=== PATIENT | male | born 1980 | race Caucasian/White ===

== ENCOUNTER → 2016-08-14 | Outpatient (CLI) | payer BC, OTHER ==
[~2016-08-14] MED LIST: CELE100C; KETO-28; TIZA4TAB; TRAM100T; TRAMPOW3; VICO5TAB; VICODINES TAB
--- NOTE | 2016-08-16 08:22 | REP ---
MR THORACIC SPINE WITHOUT CONTRAST: HISTORY: Back pain. A small central disc protrusion is present at the T8-9 level. There is mild effacement of the thecal sac without spinal cord compression. The T8 neural foramina are patent. A small central disc protrusion is present at the T9-10 level. There is minimal effacement of the thecal sac without spinal cord compression. The T9 neural foramina are patent. There is no other disc bulge or herniation. The remaining neural foramina are patent. The spinal cord is normal in signal intensity. A hemangioma is present in the T3 vertebral body. Normal signal intensity is present in the remaining thoracic vertebral bodies. IMPRESSION: Small disc protrusions at the T8-9 and T9-10 levels without spinal cord compression. Signed by Ayan Burrows MD 08/16/2016 09:44 A
--- NOTE | 2016-08-16 08:32 | REP ---
MR LUMBAR SPINE WITHOUT CONTRAST: HISTORY: Back pain. COMPARISON: 07/02/2012 Decreased signal intensity on T2-weighted images is present in the L5-S1 intervertebral disc. The disc is decreased in height. These findings are consistent with disc degeneration. There is no disc bulge or herniation at the L1-2 through L3-4 levels. The nerves exit the neural foramina without compression. A diffuse disc bulge is present at the L4-5 level. There is minimal compression at the thecal sac. The L4 nerves exit the neural foramina without compression. A diffuse disc bulge and small disc extrusion central and eccentric to the right are present at the L5-S1 level. There is inferior migration of disc material. The disc extrusion abuts the thecal sac and right S1 nerve. The L5 nerves exit the neural foramina without compression. The conus medullaris is normal in appearance terminating at the level of the T12-L1 intervertebral disc. A hemangioma is present in the L3 vertebral body. Normal signal intensity is present in the remaining lumbar vertebral bodies. IMPRESSION: 1. Diffuse disc bulge at the L4-5 level with minimal thecal sac compression. 2. Diffuse disc bulge and small disc extrusion at the L5-S1 level. The disc extrusion abuts the thecal sac and right S1 nerve. There is no significant change compared to the previous study. Signed by Ayan Burrows MD 08/16/2016 09:44 A
== END ==
LOC: M RAD 16:15
PROVIDERS: ATTEND Neurological Surgery
DX: M54.5 Low back pain (principal)

== ENCOUNTER → 2019-01-03 | Outpatient (REF) | payer OTHER ==
[2019-01-06 11:51] LABS: HEPATITIS A ANTIBODY IGM NEGATIVE (NEGATIVE); HEPATITIS B CORE ANTIBODY IGM NEGATIVE (NEGATIVE); HEPATITIS B SURFACE ANTIGEN NEGATIVE (NEGATIVE); HEPATITIS C VIRUS ABY INDEX 0.1 INDEX (<0.8)
== END ==
LOC: M LAB REF 16:37
PROVIDERS: ATTEND Nurse Practitioner Adult Health
DX: R74.8 Abnormal levels of other serum enzymes (principal)

== ENCOUNTER → 2019-03-15 | Outpatient (REF) | payer OTHER | LOC: M LAB REF 15:28 | PROVIDERS: ATTEND Physician Assistant | DX: J02.9 Acute pharyngitis, unspecified (principal) ==

== ENCOUNTER 2019-08-30 16:59 | Emergency (ER) | payer BC, OTHER ==
[~2019-08-30] VITALS: Ht 177.8 cm; Wt 90.0 kg
[2019-08-30] MEDS ORDERED: BUPR1SUB33 (17:12)
[2019-08-30] MEDS ORDERED: ESCI20TA (17:12)
[2019-08-30] MEDS ORDERED: CYCLOBENZAPRINE 10MG TABLET PO ONE (18:30)
[2019-08-30] MEDS ORDERED: KETOROLAC 60MG 2ML VIAL IM ONE (18:30)
[2019-08-30] MEDS ORDERED: methylPREDNISolone 125MG 2ML VIAL IM ONE (18:30)
[2019-08-30] MEDS ORDERED: LIDOCAINE 5% (LIDODERM) PATCH TD ONE (18:30)
[2019-08-30] MEDS ORDERED: CYCL-707 PO (19:19)
[2019-08-30 19:37] VITALS: BP 123/73
[2019-08-30] MEDS ORDERED: **NOTE PATIENT COMMENT** MISC XX SCH (21:00)
== END 2019-08-30 19:37 | disposition home or self-care (01) ==
LOC: M ED 16:59
DX: M54.5 Low back pain (principal); G89.29 Other chronic pain; Z79.899 Other long term (current) drug therapy; Z79.891 Long term (current) use of opiate analgesic
CPT/HCPCS: 96372; 99283; J1885; J2930

== ENCOUNTER → 2020-08-24 | Outpatient (REF) | payer OTHER, BC ==
[~2020-08-24] MED LIST changes: +BUPR1SUB33; +CYCL-707 PO; +ESCI20TA16 PO
== END ==
LOC: M LAB REF 19:18
PROVIDERS: ATTEND Nurse Practitioner Family
DX: J02.9 Acute pharyngitis, unspecified (principal)

== ENCOUNTER 2021-01-16 11:54 | Emergency (ER) | payer BC, OTHER ==
[~2021-01-16] VITALS: Ht 177.8 cm; Wt 89.4 kg
[2021-01-16 11:54] VITALS: BP 153/83
[2021-01-16 12:15] VITALS: O2SAT 94
--- OUTSIDE RECORDS SUMMARY | 2021-01-16 12:44 | CCD ---
Author Author [facility] Organization [facility] Address Unknown Phone Unavailable Care Team Providers Care Circuit Court Magistrate Name Role Phone Virginie Linaresina LABORATORY ENGINEER Unavailable Unavailable Linares, Chana LABORATORY ENGINEER Unavailable Unavailable Linares, Chana LABORATORY ENGINEER Unavailable Unavailable Linares, Chana LABORATORY ENGINEER Unavailable Unavailable Linares, Chana LABORATORY ENGINEER Unavailable Unavailable Linares, Chana LABORATORY ENGINEER Unavailable Unavailable Linares, Chana LABORATORY ENGINEER Unavailable Unavailable Linares, Chana LABORATORY ENGINEER Unavailable Unavailable Linares, Chana LABORATORY ENGINEER Unavailable Unavailable Linares, Chana LABORATORY ENGINEER Unavailable Unavailable Linares, Chana LABORATORY ENGINEER Unavailable Unavailable Linares, Chana LABORATORY ENGINEER Unavailable Unavailable Linares, Chana LABORATORY ENGINEER Unavailable Unavailable ENIO A LYSSA PA Unavailable Unavailable Dianna STEEN PA Unavailable Unavailable Dianna STEEN PA Unavailable Unavailable Dianna STEEN PA Unavailable Unavailable Dianna STEEN PA Unavailable Unavailable Dianna STEEN PA Unavailable Unavailable LETTIERE, A LYSSA PA Unavailable Unavailable LETTIERE, A LYSSA PA Unavailable Unavailable LETTIERE, A LYSSA PA Unavailable Unavailable LETTIERE, A LYSSA PA Unavailable Unavailable LETTIERE, A LYSSA PA Unavailable Unavailable LETTIERE, A LYSSA PA Unavailable Unavailable LETTIERE, A LYSSA PA Unavailable Unavailable LETTIERE, A LYSSA PA Unavailable Unavailable LETTIERE, A LYSSA PA Unavailable Unavailable LETTIERE, A LYSSA PA Unavailable Unavailable LETTIERE, A LYSSA PA Unavailable Unavailable LETTIERE, A LYSSA PA Unavailable Unavailable LETTIERE, A LYSSA PA Unavailable Unavailable LETTIERE, A LYSSA PA Unavailable Unavailable LETTIERE, A LYSSA PA Unavailable Unavailable LETTIERE, A LYSSA PA Unavailable Unavailable LETTIERE, A LYSSA PA Unavailable Unavailable LETTIERE, A LYSSA PA Unavailable Unavailable LETTIERE, A LYSSA PA Unavailable Unavailable LETTIERE, A LYSSA PA Unavailable Unavailable LETTIERE, A LYSSA PA Unavailable Unavailable LETTIERE, A LYSSA PA Unavailable Unavailable LETTIERE, A LYSSA PA Unavailable Unavailable LETTIERE, A LYSSA PA Unavailable Unavailable LETTIERE, A LYSSA PA Unavailable Unavailable Hema, A Iain MD Unavailable Unavailable Hema, A Iain MD Unavailable Unavailable Hema, A Iain MD Unavailable Unavailable Hema, A Iain MD Unavailable Unavailable Hema, A Iain MD Unavailable Unavailable Hema, A Iain MD Unavailable Unavailable Hema, A Iain MD Unavailable Unavailable Hema, A Iain MD Unavailable Unavailable Hema, A Iain MD Unavailable Unavailable Hema, A Iain MD Unavailable Unavailable Hema, A Iain MD Unavailable Unavailable Hema, A Iain MD Unavailable Unavailable Hema, A Iain MD Unavailable Unavailable Hema, A Iain MD Unavailable Unavailable Hema, A Iain MD Unavailable Unavailable Hema, A Iain MD Unavailable Unavailable Hema, A Iain MD Unavailable Unavailable Hema, A Iain MD Unavailable Unavailable Hema, A Iain MD Unavailable Unavailable Hema, A Iain MD Unavailable Unavailable Hema, A Iain MD Unavailable Unavailable Hema, A Iain MD Unavailable Unavailable Hema, A Iain MD Unavailable Unavailable Hema, A Iain MD Unavailable Unavailable Hema, A Iain MD Unavailable Unavailable Hema, A Iain MD Unavailable Unavailable Hema, A Iain MD Unavailable Unavailable Hema, A Iain MD Unavailable Unavailable Hema, A Iain MD Unavailable Unavailable Hema, A Iain MD Unavailable Unavailable Hema, A Iain MD Unavailable Unavailable Hema, A Iain MD Unavailable Unavailable Hema, A Iain MD Unavailable Unavailable Hema, A Iain MD Unavailable Unavailable Hema, A Iain MD Unavailable Unavailable Hema, A Iain MD Unavailable Unavailable Hema, A Iain MD Unavailable Unavailable Hema, A Iain MD Unavailable Unavailable Hema, A Iain MD Unavailable Unavailable Hema, A Iain MD Unavailable Unavailable Hema, A Iain MD Unavailable Unavailable Hema, A Iain MD Unavailable Unavailable Hema, A Iain MD Unavailable Unavailable Hema, A Iain MD Unavailable Unavailable Hema, A Iain MD Unavailable Unavailable Hema, A Iain MD Unavailable Unavailable Hema, A Iain MD Unavailable Unavailable Hema, A Iain MD Unavailable Unavailable Hema, A Iain MD Unavailable Unavailable Hema, A Iain MD Unavailable Unavailable Hema, A Iain MD Unavailable Unavailable Hema, A Iain MD Unavailable Unavailable Hema, A Iain MD Unavailable Unavailable Hema, A Iain MD Unavailable Unavailable Hema, A Iain MD Unavailable Unavailable Hema, A Iain MD Unavailable Unavailable Hema, A Iain MD Unavailable Unavailable Hema, A Iain MD Unavailable Unavailable Hema, A Iain MD Unavailable Unavailable Hema, A Iain MD Unavailable Unavailable Hema, A Iain MD Unavailable Unavailable Hema, A Iain MD Unavailable Unavailable Hema, A Iain MD Unavailable Unavailable Hema, A Iain MD Unavailable Unavailable Hema, A Iain MD Unavailable Unavailable Hema, A Iain MD Unavailable Unavailable Hema, A Iain MD Unavailable Unavailable Hema, A Iain MD Unavailable Unavailable Hema, A Iain MD Unavailable Unavailable Hema, A Iain MD Unavailable Unavailable Hema, A Iain MD Unavailable Unavailable Hema, A Iain MD Unavailable Unavailable Hema, A Iain MD Unavailable Unavailable Hema, A Iain MD Unavailable Unavailable Hema, A Iain MD Unavailable Unavailable Hema, A Iain MD Unavailable Unavailable Hema, A Iain MD Unavailable Unavailable Hema, A Iain MD Unavailable Unavailable Hema, A Iain MD Unavailable Unavailable Hema, A Iain MD Unavailable Unavailable Hema, A Iain MD Unavailable Unavailable Hema, A Iain MD Unavailable Unavailable Hema, A Iain MD Unavailable Unavailable Hema, A Iain MD Unavailable Unavailable Hema, A Iain MD Unavailable Unavailable Hema, A Iain MD Unavailable Unavailable Hema, A Iain MD Unavailable Unavailable Hema, A Iain MD Unavailable Unavailable Hema, A Iain MD Unavailable Unavailable Hema, A Iain MD Unavailable Unavailable Hema, A Iain MD Unavailable Unavailable Hema, A Iain MD Unavailable Unavailable Hema, A Iain MD Unavailable Unavailable Hema, A Iain MD Unavailable Unavailable Hema, A Iain MD Unavailable Unavailable Hema, A Iain MD Unavailable Unavailable Hema, A Iain MD Unavailable Unavailable Hema, A Iain MD Unavailable Unavailable Hema, A Iain MD Unavailable Unavailable Hema, A Iain MD Unavailable Unavailable Hema, A Iain MD Unavailable Unavailable Hema, A Iain MD Unavailable Unavailable Hema, A Iain MD Unavailable Unavailable Hema, A Iain MD Unavailable Unavailable Hema, A Iain MD Unavailable Unavailable Hema, A Iain MD Unavailable Unavailable Hema, A Iain MD Unavailable Unavailable Hema, A Iain MD Unavailable Unavailable Hema, A Iain MD Unavailable Unavailable Hema, A Iain MD Unavailable Unavailable Hema, A Iain MD Unavailable Unavailable Hema, A Iain MD Unavailable Unavailable Hema, A Iain MD Unavailable Unavailable Hema, A Iain MD Unavailable Unavailable Hema, A Iain MD Unavailable Unavailable Hema, A Iain MD Unavailable Unavailable Hema, A Iain MD Unavailable Unavailable Hema, A Iain MD Unavailable Unavailable PICKERAL JR, J ARPIT PA-C Unavailable Unavailable PICKERAL JR, J ARPIT PA-C Unavailable Unavailable PICKERAL JR, J ARPIT PA-C Unavailable Unavailable PICKERAL JR, J ARPIT PA-C Unavailable Unavailable PICKERAL JR, J ARPIT PA-C Unavailable Unavailable PICKERAL JR, J ARPIT PA-C Unavailable Unavailable PICKERAL JR, J ARPIT PA-C Unavailable Unavailable PICKERAL JR, J ARPIT PA-C Unavailable Unavailable PICKERAL JR, J ARPIT PA-C Unavailable Unavailable PICKERAL JR, J ARPIT PA-C Unavailable Unavailable PICKERAL JR, J ARPIT PA-C Unavailable Unavailable PICKERAL JR, J ARPIT PA-C Unavailable Unavailable PICKERAL JR, J ARPIT PA-C Unavailable Unavailable PICKERAL JR, J ARPIT PA-C Unavailable Unavailable PICKERAL JR, J ARPIT PA-C Unavailable Unavailable PICKERAL JR, J ARPIT PA-C Unavailable Unavailable PICKERAL JR, J ARPIT PA-C Unavailable Unavailable PICKERAL JR, J ARPIT PA-C Unavailable Unavailable PICKERAL JR, J ARPIT PA-C Unavailable Unavailable PICKERAL JR, J ARPIT PA-C Unavailable Unavailable PICKERAL JR, J ARPIT PA-C Unavailable Unavailable PICKERAL JR, J ARPIT PA-C Unavailable Unavailable PICKERAL JR, J ARPIT PA-C Unavailable Unavailable PICKERAL JR, J ARPIT PA-C Unavailable Unavailable PICKERAL JR, J ARPIT PA-C Unavailable Unavailable PICKERAL JR, J ARPIT PA-C Unavailable Unavailable PICKERAL JR, J ARPIT PA-C Unavailable Unavailable AFRICA, Mary Beth CURIEL MD Unavailable Unavailable AFRICA, Mary Beth CURIEL MD Unavailable Unavailable AFRICA, Mary Beth CURIEL MD Unavailable Unavailable AFRICA, Mary Beth CURIEL MD Unavailable Unavailable AFRICA, Mary Beth CURIEL MD Unavailable Unavailable AFRICA, Mary Beth CURIEL MD Unavailable Unavailable AFRICA, Mary Beth CURIEL MD Unavailable Unavailable AFRICA, Mary Beth CURIEL MD Unavailable Unavailable AFRICA, Mary Beth CURIEL MD Unavailable Unavailable AFRICA, Mary Beth CURIEL MD Unavailable Unavailable AFRICA, Mary Beth CURIEL MD Unavailable Unavailable AFRICA, Mary Beth CURIEL MD Unavailable Unavailable AFRICA, Mary Beth CURIEL MD Unavailable Unavailable AFRICA, Mary Beth CURIEL MD Unavailable Unavailable AFRICA, Mary Beth CURIEL MD Unavailable Unavailable AFRICA, Mary Beth CURIEL MD Unavailable Unavailable AFRICA, Mary Beth CURIEL MD Unavailable Unavailable AFRICA, Mary Beth CURIEL MD Unavailable Unavailable AFRICA, Mary Beth CURIEL MD Unavailable Unavailable AFRICA, Mary Beth CURIEL MD Unavailable Unavailable AFRICA, Mary Beth CURIEL MD Unavailable Unavailable AFRICA, Mary Beth CURIEL MD Unavailable Unavailable AFRICA, Mary Beth CURIEL MD Unavailable Unavailable AFRICA, Mary Beth CURIEL MD Unavailable Unavailable AFRICA, Mary Beth CURIEL MD Unavailable Unavailable AFRICA, Mary Beth CURIEL MD Unavailable Unavailable AFRICA, Mary Beth CURIEL MD Unavailable Unavailable AFRICA, Mary Beth CURIEL MD Unavailable Unavailable AFRICA, Mary Beth CURIEL MD Unavailable Unavailable AFRICA, Mary Beth CURIEL MD Unavailable Unavailable AFRICA, Mary Beth CURIEL MD Unavailable Unavailable AFRICA, Mary Beth CURIEL MD Unavailable Unavailable AFRICA, Mary Beth CURIEL MD Unavailable Unavailable AFRICA, Mary Beth CURIEL MD Unavailable Unavailable AFRICA, Mary Beth CURIEL MD Unavailable Unavailable AFRICA, Mary Beth CURIEL MD Unavailable Unavailable AFRICA, Mary Beth CURIEL MD Unavailable Unavailable AFRICA, Mary Beth CURIEL MD Unavailable Unavailable AFRICA, Mary Beth CURIEL MD Unavailable Unavailable AFRICA, Mary Beth CURIEL MD Unavailable Unavailable AFRICA, Mary Beth CURIEL MD Unavailable Unavailable AFRICA, Mary Beth CURIEL MD Unavailable Unavailable AFRICA, Mary Beth CURIEL MD Unavailable Unavailable AFRICA, Mary Beth CURIEL MD Unavailable Unavailable AFRICA, Mary Beth CURIEL MD Unavailable Unavailable AFRICA, Mary Beth CURIEL MD Unavailable Unavailable AFRICA, Mary Beth CURIEL MD Unavailable Unavailable AFRICA, Mary Beth CURIEL MD Unavailable Unavailable AFRICA, Mary Beth CURIEL MD Unavailable Unavailable AFRICAMary Beth MD Unavailable Unavailable AFRICA, Mary Beth CURIEL MD Unavailable Unavailable AFRICA, Mary Beth CURIEL MD Unavailable Unavailable AFRICA, Mary Beth CURILE MD Unavailable Unavailable AFRICA, Mary Beth CURIEL MD Unavailable Unavailable AFRICA, Mary Beth CURIEL MD Unavailable Unavailable AFRICA, Mary Beth CURIEL MD Unavailable Unavailable AFRICA, Mary Beth CURIEL MD Unavailable Unavailable AFRICA, Mary Beth CURIEL MD Unavailable Unavailable AFRICA, Mary Beth CURIEL MD Unavailable Unavailable AFRICA, Mary Beth CURIEL MD Unavailable Unavailable AFRICA, Mary Beth CURIEL MD Unavailable Unavailable AFRICA, Mary Beth CURIEL MD Unavailable Unavailable AFRICA, Mary Beth CURIEL MD Unavailable Unavailable AFRICA, Mary Beth CURIEL MD Unavailable Unavailable AFRICA, Mary Beth CURIEL MD Unavailable Unavailable AFRICA, Mary Beth CURIEL MD Unavailable Unavailable AFRICA, Mary Beth CURIEL MD Unavailable Unavailable AFRICA, Mary Beth CURIEL MD Unavailable Unavailable AFRICA, Mary Beth CURIEL MD Unavailable Unavailable AFRICA, Mary Beth CURIEL MD Unavailable Unavailable AFRICA, Mary Beth CURIEL MD Unavailable Unavailable AFRICA, Mary Beth CURIEL MD Unavailable Unavailable AFRICA, Mary Beth CURIEL MD Unavailable Unavailable AFRICA, Mary Beth CURIEL MD Unavailable Unavailable AFRICA, Mary Beth CURIEL MD Unavailable Unavailable AFRICA, Mary Beth CURIEL MD Unavailable Unavailable AFRICA, Mary Beth CURIEL MD Unavailable Unavailable AFRICA, Mary Beth CURIEL MD Unavailable Unavailable AFRICA, Mary Beth CURIEL MD Unavailable Unavailable AFRICA, Mary Beth CURIEL MD Unavailable Unavailable AFRICA, Mary Beth CURIEL MD Unavailable Unavailable AFRICA, Mary Beth CURIEL MD Unavailable Unavailable AFRICA, Mary Beth CURIEL MD Unavailable Unavailable AFRICA, Mary Beth CURIEL MD Unavailable Unavailable AFRICA, Mary Beth CURIEL MD Unavailable Unavailable AFRICA, Mary Beth CURIEL MD Unavailable Unavailable AFRICA, Mary Beth CURIEL MD Unavailable Unavailable AFRICA, Mary Beth CURIEL MD Unavailable Unavailable AFRICA, Mary Beth CURIEL MD Unavailable Unavailable AFRICA, Mary Beth CURIEL MD Unavailable Unavailable AFRICA, Mary Beth CURIEL MD Unavailable Unavailable AFRICA, Mary Beth CURIEL MD Unavailable Unavailable AFRICA, Mary Beth CURIEL MD Unavailable Unavailable AFRICA, Mary Beth CURIEL MD Unavailable Unavailable AFRICA, Mary Beth CURIEL MD Unavailable Unavailable AFRICA, Mary Beth CURIEL MD Unavailable Unavailable AFRICA, Mary Beth CURIEL MD Unavailable Unavailable AFRICA, Mary Beth CURIEL MD Unavailable Unavailable AFRICA, Mary Beth CURIEL MD Unavailable Unavailable AFRICA, Mary Beth CURIEL MD Unavailable Unavailable AFRICA, Mary Beth CURIEL MD Unavailable Unavailable LIN, M PADMINI PA Unavailable Unavailable LIN, M PADMINI PA Unavailable Unavailable LIN, M PADMINI PA Unavailable Unavailable LIN, M PADMINI PA Unavailable Unavailable LIN, M PADMINI PA Unavailable Unavailable LIN, M PADMINI PA Unavailable Unavailable LIN, M PADMINI PA Unavailable Unavailable LIN, M PADMINI PA Unavailable Unavailable LIN, M PADMINI PA Unavailable Unavailable LIN, M PADMINI PA Unavailable Unavailable LIN, M PADMINI PA Unavailable Unavailable LIN, M PADMINI PA Unavailable Unavailable LIN, M PADMINI PA Unavailable Unavailable LIN, M PADMINI PA Unavailable Unavailable LIN, M PADMINI PA Unavailable Unavailable LIN, M PADMINI PA Unavailable Unavailable LIN, M PADMINI PA Unavailable Unavailable LIN, M PADMINI PA Unavailable Unavailable LIN, M PADMINI PA Unavailable Unavailable LIN, M PADMINI PA Unavailable Unavailable LIN, M PADMINI PA Unavailable Unavailable LIN, M PADMINI PA Unavailable Unavailable LIN, M PADMINI PA Unavailable Unavailable LIN, M PADMINI PA Unavailable Unavailable DEISY, J Ioana ANP Unavailable Unavailable DEISY, J Ioana ANP Unavailable Unavailable DEISY, J Ioana ANP Unavailable Unavailable DEISY, J Ioana ANP Unavailable Unavailable DEISY, J Ioana ANP Unavailable Unavailable DEISY, J Ioana ANP Unavailable Unavailable DEISY, J Ioana ANP Unavailable Unavailable DEISY, J Ioana ANP Unavailable Unavailable DEISY, J Ioana ANP Unavailable Unavailable DEISY, J Ioana ANP Unavailable Unavailable DEISY, J Ioana ANP Unavailable Unavailable DEISY, J Ioana ANP Unavailable Unavailable DEISY, J Ioana ANP Unavailable Unavailable DEISY, J Ioana ANP Unavailable Unavailable DEISY, J Ioana ANP Unavailable Unavailable DEISY, J Ioana ANP Unavailable Unavailable DEISY, J Ioana ANP Unavailable Unavailable DEISY, J Ioana ANP Unavailable Unavailable DEISY, J Ioana ANP Unavailable Unavailable DEISY, J Ioana ANP Unavailable Unavailable DEISY, J Ioana ANP Unavailable Unavailable DEISY, J Ioana ANP Unavailable Unavailable DEISY, J Ioana ANP Unavailable Unavailable DEISY, J Ioana ANP Unavailable Unavailable DEISY, J Ioana ANP Unavailable Unavailable DEISY, J Ioana ANP Unavailable Unavailable DEISY, J Ioana ANP Unavailable Unavailable DEISY, J Ioana ANP Unavailable Unavailable DEISY, J Ioana ANP Unavailable Unavailable DEISY, J Ioana ANP Unavailable Unavailable DEISY, J Ioana ANP Unavailable Unavailable DEISY, J Ioana ANP Unavailable Unavailable DEISY, J Ioana ANP Unavailable Unavailable DEISY, J Ioana ANP Unavailable Unavailable DEISY, J Ioana ANP Unavailable Unavailable DEISY, J Ioana ANP Unavailable Unavailable DEISY, J Ioana ANP Unavailable Unavailable DEISY, J Ioana ANP Unavailable Unavailable DEISY, J Ioana ANP Unavailable Unavailable DEISY, J Ioana ANP Unavailable Unavailable DEISY, J Ioana ANP Unavailable Unavailable DEISY, J Ioana ANP Unavailable Unavailable DEISY, J Ioana ANP Unavailable Unavailable DEISY, J Ioana ANP Unavailable Unavailable DEISY, J Ioana ANP Unavailable Unavailable DEISY, J Ioana ANP Unavailable Unavailable DEISY, J Ioana ANP Unavailable Unavailable DEISY, J Ioana ANP Unavailable Unavailable DEISY, J Ioana ANP Unavailable Unavailable DEISY, J Ioana ANP Unavailable Unavailable DEISY, J Ioana ANP Unavailable Unavailable DEISY, J Ioana ANP Unavailable Unavailable DEISY, J Ioana ANP Unavailable Unavailable DEISY, J Ioana ANP Unavailable Unavailable DEISY, J Ioana ANP Unavailable Unavailable DEISY, J Ioana ANP Unavailable Unavailable DEISY, J Ioana ANP Unavailable Unavailable DEISY, J Ioana ANP Unavailable Unavailable DEISY, J Ioana ANP Unavailable Unavailable DEISY, J Ioana ANP Unavailable Unavailable DEISY, J Ioana ANP Unavailable Unavailable DEISY, J Ioana ANP Unavailable Unavailable DEISY, J Ioana ANP Unavailable Unavailable DEISY, J Ioana ANP Unavailable Unavailable Re-disclosure Warning The records that you are about to access may contain information from federally-assisted alcohol or drug abuse programs. If such information is present, then the following federally mandated warning applies: This information has been disclosed to you from records protected by federal confidentiality rules (42 CFR part 2). The federal rules prohibit you from making any further disclosure of this information unless further disclosure is expressly permitted by the written consent of the person to whom it pertains or as otherwise permitted by 42 CFR part 2. A general authorization for the release of medical or other information is NOT sufficient for this purpose. The Federal rules restrict any use of the information to criminally investigate or prosecute any alcohol or drug abuse patient.The records that you are about to access may contain highly sensitive health information, the redisclosure of which is protected by Article 27-F of the [facility] Public Health law. If you continue you may have access to information: Regarding HIV / AIDS; Provided by facilities licensed or operated by the [facility] Office of Mental Health; or Provided by the [facility] Office for People With Developmental Disabilities. If such information is present, then the following [facility] mandated warning applies: This information has been disclosed to you from confidential records which are protected by state law. State law prohibits you from making any further disclosure of this information without the specific written consent of the person to whom it pertains, or as otherwise permitted by law. Any unauthorized further disclosure in violation of state law may result in a fine or mcc sentence or both. A general authorization for the release of medical or other information is NOT sufficient authorization for further disc losure. Allergies and Adverse Reactions Type Description Substance Reaction Status Data Source(s ) Propensity to adverse reactions NO KNOWN ALLERGIES NO KNOWN ALLERGIES [facility] Family History Family Member Name Family Member Gender Family Member Status Date o f Status Description Data Source(s) Unknown Unknown Problem [facility] ([facility]) father Unknown Unknown Problem [facility] ([facility] ) Encounters Encounter Providers Location Date Indications Data Source(s ) Outpatient Attender: Chana Lu wes 08/24/2020 02:40:00 PM EDT [facility] ([facility]) Outpatient Attender: ARPIT munguia 07/24/2020 11:30:00 AM EDT [facility] ([facility]) Outpatient Attender: LYSSA crum 06/25/2020 03:40:00 PM EDT [facility] ([facility]) Outpatient Attender: Chana Lu wes 02/15/2020 12:25:00 PM EST [facility] ([facility]) Outpatient Attender: VEENA Donerrer: Iain Rodriguez MD 02/12/2020 12:00:00 AM [facility] Outpatient Attender: VEENA LIZAMAeferrer: Iain Rodriguez MD 01/22/2020 12:00:00 AM [facility] Outpatient Attender: Ioana Yeung 08/2019 12:15:00 PM EST [facility] ([facility] ) Outpatient Attender: Iain Garrido MDReferrer: PADMINI PATEL [id number] 12/12/2019 12:00:00 AM EDT Other specified soft tissue disorders [facility] Other specified soft tissue disorders Medications Medication Brand Name Start Date Product Form Dose Route Admi nistrative Instructions Pharmacy Instructions Status Indications Reaction Description Data Source(s) 2-0.5 mg 12/28/2020 12:00:00 AM EST tablet, sublingual 140 DISSOLVE ONE TABLET UNDER THE TONGUE 5 TIMES DAILY MAXIMUM DAILY DOSE = 5 DISSOLVE ONE TABLET UNDER THE TONGUE 5 TIMES DAILY MAXIMUM DAILY DOSE = 5 SOLD: 12/28/2020 [facility] 2-0.5 mg 11/04/2020 12:00:00 AM EDT tablet, sublingual 140 USE 1 TABLET UNDER THE TONGUE 5 TIMES PER DAY MAXIMUM DAILY DOSE = 5 TABLETS USE 1 TABLET UNDER THE TONGUE 5 TIMES PER DAY MAXIMUM DAILY DOSE = 5 TABLETS SOLD: 12/01/2020 [facility] 2-0.5 mg 11/04/2020 12:00:00 AM EDT tablet, sublingual 140 USE 1 TABLET UNDER THE TONGUE 5 TIMES PER DAY MAXIMUM DAILY DOSE = 5 TABLETS USE 1 TABLET UNDER THE TONGUE 5 TIMES PER DAY MAXIMUM DAILY DOSE = 5 TABLETS SOLD: 11/04/2020 [facility] Escitalopram 20 MG Oral Tablet ESCITALOPRAM OXALATE 10/05/2020 1 2:00:00 AM EDT tablet 90 TAKE ONE TABLET BY MOUTH EVERY D AY TAKE ONE TABLET BY MOUTH EVERY DAY SOLD: 10/07/2020 [facility] 300 mg 09/21/2020 12:00:00 AM EDT capsule 20 TAKE ONE CAPSULE BY MOUTH EVERY 12 HOURS FOR 10 DAYS TAKE ONE CAPSULE BY MOUTH EVERY 12 HOURS FOR 10 DAYS S OLD: 09/21/2020 [facility] 2-0.5 mg 09/10/2020 12:00:00 AM EDT tablet, sublingual [address] PLACE ONE TABLET UNDER THE TONGUE FIVE TIMES A DAY MAXIMUM DAILY DOSE = 5 PLACE ONE TABLET UNDER THE TONGUE FIVE TIMES A DAY MAXIMUM DAILY DOSE = 5 SOLD: 09/11/2020 [facility] 2-0.5 mg 09/10/2020 12:00:00 AM EDT tablet, sublingual 140 PLACE ONE TABLET UNDER THE TONGUE FIVE TIMES A DAY MAXIMUM DAILY DOSE = 5 PLACE ONE TABLET UNDER THE TONGUE FIVE TIMES A DAY MAXIMUM DAILY DOSE = 5 SOLD: 10/08/2020 [facility] Cyclobenzaprine hydrochloride 10 MG Oral Tablet CYCLOBENZAPR INE HCL 08/24/2020 12:00:00 AM EDT tablet 30 TAKE ONE TABLET BY MOUTH EVERY DAY AT BEDTIME TAKE ONE TABLET BY MOUTH EVERY DAY AT BEDTIME SOLD: 09/21/2020 [facility] Cyclobenzaprine hydrochloride 10 MG Oral Tablet CYCLOBENZAPR INE HCL 08/24/2020 12:00:00 AM EDT tablet 30 TAKE ONE TABLET BY MOUTH EVERY DAY AT BEDTIME TAKE ONE TABLET BY MOUTH EVERY DAY AT BEDTIME SOLD: 08/24/2020 [facility] 2-0.5 mg 07/18/2020 12:00:00 AM EDT tablet, sublingual 140 PLACE ONE TABLET UNDER THE TONGUE FIVE TIMES A DAY MAXIMUM DAILY DOSE = [address] ONE TABLET UNDER THE TONGUE FIVE TIMES A DAY MAXIMUM DAILY DOSE = 5 TABLETS SOLD: 07/18/2020 [facility] 2-0.5 mg 07/18/2020 12:00:00 AM EDT tablet, sublingual [address] PLACE ONE TABLET UNDER THE TONGUE FIVE TIMES A DAY MAXIMUM DAILY DOSE = [address] ONE TABLET UNDER THE TONGUE FIVE TIMES A DAY MAXIMUM DAILY DOSE = 5 TABLETS SOLD: 08/14/2020 [facility] Escitalopram 20 MG Oral Tablet ESCITALOPRAM OXALATE 06/29/2020 1 2:00:00 AM EDT tablet 90 TAKE ONE TABLET BY MOUTH EVERY D AY TAKE ONE TABLET BY MOUTH EVERY DAY SOLD: 06/29/2020 [facility] Cyclobenzaprine hydrochloride 10 MG Oral Tablet CYCLOBENZAPR INE HCL 06/26/2020 12:00:00 AM EDT tablet 30 TAKE ONE TABLET BY MOUTH EVERY DAY AT BEDTIME TAKE ONE TABLET BY MOUTH EVERY DAY AT BEDTIME SOLD: 07/25/2020 [facility] Cyclobenzaprine hydrochloride 10 MG Oral Tablet CYCLOBENZAPR INE HCL 06/26/2020 12:00:00 AM EDT tablet 30 TAKE ONE TABLET BY MOUTH EVERY DAY AT BEDTIME TAKE ONE TABLET BY MOUTH EVERY DAY AT BEDTIME SOLD: 06/26/2020 [facility] Cyclobenzaprine hydrochloride 10 MG Oral Tablet Cyclobenzapr ine HCL 06/25/2020 12:00:00 AM EDT active M [facility]ENT ([facility], [facility]) 15 mg 06/09/2020 12:00:00 AM EDT tablet 30 TAKE ONE TABLET BY MOUTH DAILY WITH FOOD OR MILK TAKE ONE TABLET BY MOUTH DAILY WITH FOOD OR MILK SOLD: 08/14/2020 [facility] 15 mg 06/09/2020 12:00:00 AM EDT tablet 30 TAKE ONE TABLET BY MOUTH DAILY WITH FOOD OR MILK TAKE ONE TABLET BY MOUTH DAILY WITH FOOD OR MILK SOLD: 10/07/2020 [facility] 15 mg 06/09/2020 12:00:00 AM EDT tablet 30 TAKE ONE TABLET BY MOUTH DAILY WITH FOOD OR MILK TAKE ONE TABLET BY MOUTH DAILY WITH FOOD OR MILK SOLD: 06/09/2020 [facility] 15 mg 06/09/2020 12:00:00 AM EDT tablet 30 TAKE ONE TABLET BY MOUTH DAILY WITH FOOD OR MILK TAKE ONE TABLET BY MOUTH DAILY WITH FOOD OR MILK SOLD: 07/16/2020 [facility] 15 mg 06/09/2020 12:00:00 AM EDT tablet 30 TAKE ONE TABLET BY MOUTH DAILY WITH FOOD OR MILK TAKE ONE TABLET BY MOUTH DAILY WITH FOOD OR MILK SOLD: 11/16/2020 [facility] 2-0.5 mg 05/25/2020 12:00:00 AM EDT tablet, sublingual 140 TAKE 1 TABLET UNDER THE TONGUE 5 TIMES DAILY MAXIMUM DAILY DOSE = 5 TABLETS TAKE 1 TABLET UNDER THE TONGUE 5 TIMES DAILY MAXIMUM DAILY DOSE = 5 TABLETS SOLD: 05/25/2020 [facility] 2-0.5 mg 05/25/2020 12:00:00 AM EDT tablet, sublingual 140 TAKE 1 TABLET UNDER THE TONGUE 5 TIMES DAILY MAXIMUM DAILY DOSE = 5 TABLETS TAKE 1 TABLET UNDER THE TONGUE 5 TIMES DAILY MAXIMUM DAILY DOSE = 5 TABLETS SOLD: 06/21/2020 [facility] 2-0.5 mg 04/01/2020 12:00:00 AM EST tablet, sublingual 140 DISSOLVE 1 TABLET UNDER THE TONGUE 5 TIMES A DAY MAXIMUM DAILY DOSE = 5 DISSOLVE 1 TABLET UNDER THE TONGUE 5 TIMES A DAY MAXIMUM DAILY DOSE = 5 SOLD: 04/01/2020 [facility] 2-0.5 mg 04/01/2020 12:00:00 AM EST tablet, sublingual 140 DISSOLVE 1 TABLET UNDER THE TONGUE 5 TIMES A DAY MAXIMUM DAILY DOSE = 5 DISSOLVE 1 TABLET UNDER THE TONGUE 5 TIMES A DAY MAXIMUM DAILY DOSE = 5 SOLD: 04/28/2020 [facility] Escitalopram 20 MG Oral Tablet ESCITALOPRAM OXALATE 03/26/2020 1 2:00:00 AM EST tablet 90 TAKE ONE TABLET BY MOUTH EVERY D AY TAKE ONE TABLET BY MOUTH EVERY DAY SOLD: 03/30/2020 [facility] No Active Medications 02/15/2020 12:00:00 AM EST [facility] 2-0.5 mg 02/09/2020 12:00:00 AM EST tablet, sublingual 140 TAKE 1 TABLET UNDER THE TONGUE 5 TIMES A DAY MAXIMUM DAILY DOSE = 5 TAKE 1 TABLET UNDER THE TONGUE 5 TIMES A DAY MAXIMUM DAILY DOSE = 5 SOLD: 02/09/2020 [facility] 2-0.5 mg 02/09/2020 12:00:00 AM EST tablet, sublingual 140 TAKE 1 TABLET UNDER THE TONGUE 5 TIMES A DAY MAXIMUM DAILY DOSE = 5 TAKE 1 TABLET UNDER THE TONGUE 5 TIMES A DAY MAXIMUM DAILY DOSE = 5 SOLD: 03/06/2020 [facility] 600 mg 01/19/2020 12:00:00 AM EST tablet 90 TAKE ONE TABLET BY MOUTH THREE TIMES A DAY TAKE ONE TABLET BY MOUTH THREE TIMES A DAY SOLD: 05/08/2020 [facility] 600 mg 01/19/2020 12:00:00 AM EST tablet 90 TAKE ONE TABLET BY MOUTH THREE TIMES A DAY TAKE ONE TABLET BY MOUTH THREE TIMES A DAY SOLD: 04/07/2020 [facility] 600 mg 01/19/2020 12:00:00 AM EST tablet 90 TAKE ONE TABLET BY MOUTH THREE TIMES A DAY TAKE ONE TABLET BY MOUTH THREE TIMES A DAY SOLD: 02/26/2020 [facility] 600 mg 01/19/2020 12:00:00 AM EST tablet 90 TAKE ONE TABLET BY MOUTH THREE TIMES A DAY TAKE ONE TABLET BY MOUTH THREE TIMES A DAY SOLD: 01/22/2020 [facility] Escitalopram 20 MG Oral Tablet ESCITALOPRAM OXALATE 12/29/2019 1 2:00:00 AM EST tablet 90 TAKE ONE TABLET BY MOUTH EVERY D AY TAKE ONE TABLET BY MOUTH EVERY DAY SOLD: 12/31/2019 [facility] 2-0.5 mg 12/17/2019 12:00:00 AM EST tablet, sublingual 140 USE 1 TABLET UNDER THE TONGUE 5 TIMES PER DAY MAXIMUM DAILY DOSE = 5 USE 1 TABLET UNDER THE TONGUE 5 TIMES PER DAY MAXIMUM DAILY DOSE = 5 SOLD: 01/13/2020 [facility] 15 mg 12/06/2019 12:00:00 AM EDT tablet 30 TAKE ONE TABLET BY MOUTH DAILY WITH FOOD OR MILK TAKE ONE TABLET BY MOUTH DAILY WITH FOOD OR MILK SOLD: 03/11/2020 [facility] 15 mg 12/06/2019 12:00:00 AM EDT tablet 30 TAKE ONE TABLET BY MOUTH DAILY WITH FOOD OR MILK TAKE ONE TABLET BY MOUTH DAILY WITH FOOD OR MILK SOLD: 05/08/2020 [facility] 15 mg 12/06/2019 12:00:00 AM EDT tablet 30 TAKE ONE TABLET BY MOUTH DAILY WITH FOOD OR MILK TAKE ONE TABLET BY MOUTH DAILY WITH FOOD OR MILK SOLD: 02/09/2020 [facility] 15 mg 12/06/2019 12:00:00 AM EDT tablet 30 TAKE ONE TABLET BY MOUTH DAILY WITH FOOD OR MILK TAKE ONE TABLET BY MOUTH DAILY WITH FOOD OR MILK SOLD: 12/08/2019 [facility] 15 mg 12/06/2019 12:00:00 AM EDT tablet 30 TAKE ONE TABLET BY MOUTH DAILY WITH FOOD OR MILK TAKE ONE TABLET BY MOUTH DAILY WITH FOOD OR MILK SOLD: 01/07/2020 [facility] 15 mg 12/06/2019 12:00:00 AM EDT tablet 30 TAKE ONE TABLET BY MOUTH DAILY WITH FOOD OR MILK TAKE ONE TABLET BY MOUTH DAILY WITH FOOD OR MILK SOLD: 04/07/2020 [facility] meloxicam 15 MG Oral Tablet Meloxicam 15 MG Oral Table t (MOBIC) Meloxicam 15 MG Oral Tablet (MOBIC) 12/05/2019 12:00:00 AM EDT [facility] 600 mg 11/12/2019 12:00:00 AM EDT tablet 90 TAKE ONE TABLET BY MOUTH AT BEDTIME FOR 7 DAYS, THEN TWO TIMES A DAY FOR 7 DAYS, THEN TAKE ONE TABLET BY MOUTH THREE TIMES A DAY TAKE ONE TABLET BY MOUTH AT BEDTIME FOR 7 DAYS, THEN TWO TIMES A DAY FOR 7 DAYS, THEN TAKE ONE TABLET BY MOUTH THREE TIMES A DAY SOLD: 12/17/2019 [facility] 2-0.5 mg 10/25/2019 12:00:00 AM EDT tablet, sublingual 140 TAKE 1 TABLET UNDER THE TONGUE 5 TIMES A DAY MAXIMUM DAILY DOSE = 5 TAKE 1 TABLET UNDER THE TONGUE 5 TIMES A DAY MAXIMUM DAILY DOSE = 5 SOLD: 11/21/2019 [facility] Insurance Providers Payer name Policy type / Coverage type Policy ID Covered republican ID Covered republican's relationship to coronado Policy [place] Plan Information [facility] Insurance [facility] Workers Compensation [id number] Self [id number] [facility] Insurance [facility] Workers Compensation [id number] Self [id number] [facility] Insurance [facility] Workers Compensation [id number] Self [facility] [id number] SP [id number] [employer] MISHA DIV [id number] SP [id number] [employer] PLAN [facility] U [id number] Self [id number] [employer] [facility] U [id number] Self [id number] [facility] Health Maintenance Organization (HMO) [id number] Self [id number] [facility] [id number] SP [id number] [facility] EMPIRE MISHA DIV [id number] SP [id number] [facility] Commercial [id number] Self [place] Plan [facility] [id number] [facility] [id number] [facility] UNAVAILABLE UNAVAILABLE SELF PAY UNAVAILABLE SELF UNAVAILA BLE [facility] ([facility] P UNAVAILABLE S UNAVAILABLE [id number] [facility] ([facility]) P [id number] S [id number] [facility] Commercial [id number] Self [id number] [facility] Commercial [id number] Self [id number] [facility] [place] Commercial [id number] Self [id number] [facility] Commercial [id number] Self [id number] [facility] [place] Health Maintenance Organization (HMO) [id number] Self [id number] Problems, Conditions, and Diagnoses Code Display Name Description Problem Type Effective Dates Data Source(s) G89.29 Other chronic pain Other chronic pain Diagnosis 10:39:38 AM EDT [facility] M54.5 Low back pain Low back pain Diagnosis 12/12/2019 10:39:38 AM EDT [facility] M79.89 Other specified soft tissue disorders Ot her specified soft tissue disorders Diagnosis 12/12/2019 10:39:38 AM EDT [facility] Surgeries/Procedures Procedure Description Date Indications Data Source(s) OFFICE OUTPATIENT VISIT 15 MINUTES 08/24/2020 12:00:00 AM EDT [facility] ([facility], [facility]) OFFICE OUTPATIENT VISIT 15 MINUTES 07/24/2020 12:00:00 AM EDT [facility] ([facility], [facility]) OFFICE OUTPATIENT VISIT 25 MINUTES 06/25/2020 12:00:00 AM EDT [facility] ([facility], [facility]) Results ID Date Data Source [id number] 01/10/2021 04:00:00 PM EST [facility] Name Value Range Interpretation Code Description Data Kelsie rce(s) Supporting Document(s) SARS coronavirus 2 RNA [Presence] in Res piratory specimen by NEETU with probe detection Positive [facility] This lab was ordered by [employer] and re ported by [employer]. ID Date Data Source [id number] 01/12/2021 02:38:00 AM EST [facility] Name Value Range Interpretation Code Description Data Kelsie rce(s) Supporting Document(s) 16429-8 DETECTED Abnormal (applies to non-numeric res ults) [facility] A Detected result is considered a positi ve test resultfor COVID-19. This indicates that RNA from SARS-CoV-2(formerly 2019-nCoV) was detected, and the patient isinfected with the virus and presumed to be contagious.If requested by public health authority, specimen willbe sent for additional testing.Specimens that are self-collected were not tested withan internal control to confirm that the specimen wasproperly collected. As such, unobserved self-collectedspecimens from SARS-CoV-2 positive individuals may yieldnegative results if the specimen was not collected properly.Please review the "Fact Sheets" and FDA authorizedlabeling available for health care providers andpatients using the following websites:userfox.com/home/Covid-19/HCP/cb-jfxs-bamu-lqwzz7LxgwfYgujcqsu ics.com/home/Covid-19/Patients/vv-zhgs-fkrn-lczah7Rjkn test has been authorized by the FDA under anEmergency Use Authorization (EUA) for use by authorizedlaboratories.Methodology: Nucleic Acid Amplification Test (NEETU T)includes RT-PCR or TMA ID Date Data Source [id number] 01/10/2021 08:00:00 AM EST [facility] Name Value Range Interpretation Code Description Data Kelsie rce(s) Supporting Document(s) SARS-COV-2 RNA RESP QL NEETU+PROBE Detected [facility] This lab was ordered by [facility] and reported by [employer]. ID Date Data Source [id number] 12/31/2020 07:00:00 PM EST [facility] Name Value Range Interpretation Code Description Data Kelsie rce(s) Supporting Document(s) SARS coronavirus 2 RNA [Presence] in Res piratory specimen by NEETU with probe detection Not detected [facility] This lab was ordered by [facility] and re ported by [facility]. ID Date Data Source [id number] 01/05/2021 01:55:00 AM EST [facility] Name Value Range Interpretation Code Description Data Kelsie rce(s) Supporting Document(s) 51730-5 NOT DETECTED [facility] A Not Detected (negative) test result fo r this testmeans that SARS- CoV-2 RNA was not present in the specimenabove the limit of detection. A negative result does notrule out the possibility of COVID-19 and should not beused as the sole basis for treatment or patient managementdecisions. If COVID-19 is still suspected, based onexposure history together with other clinical findings,re- testing should be considered in consultation with[facility] authorities. Laboratory test results shouldalways be considered in the context of clinicalobservations and epidemiological data in making a finaldiagnosis and patient management decisions.Specimens that are self-collected were not tested withan internal control to confirm that the specimen wasproperly collected. As such, unobserved self-collectedspecimens from SARS-CoV-2 positive individuals may yieldnegative results if the specimen was not collected properly.Please review the "Fact Sheets" and FDA authorizedlabeling available for health care pr oviders andpatients using the following websites:[facility]fox[facility]/home/Covid-19/HCP/mk-fcxb-ecfh-nxayi7XqoytCluqbxll ics.com/home/Covid-19/Patients/bb-yfiu-clsw-wfvsx8Says test has been authorized by the FDA under anEmergency Use Authorization (EUA) for use by authorizedlaboratories.Methodology: Nucleic Acid Amplification Test (NAAT)includes RT-PCR or TMA ID Date Data Source [id number] 12/31/2020 11:00:00 AM EST [facility] Name Value Range Interpretation Code Description Data Kelsie rce(s) Supporting Document(s) SARS-COV-2 RNA RESP QL NEETU+PROBE Not detected [facility] This lab was ordered by [facility] and reported by [employer]. ID Date Data Source [id number] 12/24/2020 10:08:00 PM EST [facility] Name Value Range Interpretation Code Description Data Kelsie rce(s) Supporting Document(s) SARS coronavirus 2 RNA [Presence] in Res piratory specimen by NEETU with probe detection Not detected [facility] This lab was ordered by [facility] and re ported by [facility]. ID Date Data Source [id number] 12/24/2020 02:08:00 PM EST [facility] Name Value Range Interpretation Code Description Data Kelsie rce(s) Supporting Document(s) SARS-COV-2 RNA RESP QL NEETU+PROBE Not detected [facility] This lab was ordered by [facility] and reported by [employer]. ID Date Data Source [id number] 12/26/2020 03:59:00 AM EST [facility] Name Value Range Interpretation Code Description Data Kelsie rce(s) Supporting Document(s) 82091-8 NOT DETECTED [facility] A Not Detected (negative) test result fo r this testmeans that SARS- CoV-2 RNA was not present in the specimenabove the limit of detection. A negative result does notrule out the possibility of COVID-19 and should not beused as the sole basis for treatment or patient managementdecisions. If COVID-19 is still suspected, based onexposure history together with other clinical findings,re- testing should be considered in consultation withpublic health authorities. Laboratory test results shouldalways be considered in the context of clinicalobservations and epidemiological data in making a finaldiagnosis and patient management decisions.Specimens that are self-collected were not tested withan internal control to confirm that the specimen wasproperly collected. As such, unobserved self-collectedspecimens from SARS-CoV-2 positive individuals may yieldnegative results if the specimen was not collected properly.Please review the "Fact Sheets" and FDA authorizedlabeling available for health care pr oviders andpatients using the following websites:[employer]/home/Covid-19/HCP/cl-kdmd-iyjs-mwfoo3HkgidDvgtqbjq [employer]/home/Covid-19/Patients/ys-xmpk-hwzw-cbmzs4Vhyj test has been authorized by the FDA under anEmergency Use Authorization (EUA) for use by authorizedlaboratories.Methodology: Nucleic Acid Amplification Test (NAAT)includes RT-PCR or TMA ID Date Data Source [id number] 12/17/2020 09:00:00 PM EDT [facility] Name Value Range Interpretation Code Description Data Kelsie rce(s) Supporting Document(s) SARS coronavirus 2 RNA [Presence] in Res piratory specimen by NEETU with probe detection Not detected [facility] This lab was ordered by [facility] and re ported by [facility]. ID Date Data Source [id number] 12/17/2020 02:00:00 PM EDT [facility] Name Value Range Interpretation Code Description Data Kelsie rce(s) Supporting Document(s) SARS-COV-2 RNA RESP QL NEETU+PROBE Not detected [facility] This lab was ordered by [facility] Employee Cov id and reported by [employer]. ID Date Data Source [id number] 12/19/2020 06:44:00 PM EST [facility] Name Value Range Interpretation Code Description Data Kelsie rce(s) Supporting Document(s) 44434-5 NOT DETECTED [facility] A Not Detected (negative) test result fo r this testmeans that SARS- CoV-2 RNA was not present in the specimenabove the limit of detection. A negative result does notrule out the possibility of COVID-19 and should not beused as the sole basis for treatment or patient managementdecisions. If COVID-19 is still suspected, based onexposure history together with other clinical findings,re- testing should be considered in consultation with[facility] authorities. Laboratory test results shouldalways be considered in the context of clinicalobservations and epidemiological data in making a finaldiagnosis and patient management decisions.Specimens that are self-collected were not tested withan internal control to confirm that the specimen wasproperly collected. As such, unobserved self-collectedspecimens from SARS-CoV-2 positive individuals may yieldnegative results if the specimen was not collected properly.Please review the "Fact Sheets" and FDA authorizedlabeling available for health care pr oviders andpatients using the following websites:userfox[facility]/home/Covid-19/HCP/lw-slnf-ilvb-sqfdx7SngncMfllqqpsiota Computing/home/Covid-19/Patients/pk-pcyp-edbb-awrdt6Uijo test has been authorized by the FDA under anEmergency Use Authorization (EUA) for use by authorizedlaboratories.Methodology: Nucleic Acid Amplification Test (NAAT)includes RT-PCR or TMA ID Date Data Source [id number] 12/12/2020 12:33:00 AM EDT [facility] Name Value Range Interpretation Code Description Data Kelsie rce(s) Supporting Document(s) 83942-3 NOT DETECTED [facility] A Not Detected (negative) test result fo r this testmeans that SARS- CoV-2 RNA was not present in the specimenabove the limit of detection. A negative result does notrule out the possibility of COVID-19 and should not beused as the sole basis for treatment or patient managementdecisions. If COVID-19 is still suspected, based onexposure history together with other clinical findings,re- testing should be considered in consultation with[facility] authorities. Laboratory test results shouldalways be considered in the context of clinicalobservations and epidemiological data in making a finaldiagnosis and patient management decisions.Specimens that are self-collected were not tested withan internal control to confirm that the specimen wasproperly collected. As such, unobserved self-collectedspecimens from SARS-CoV-2 positive individuals may yieldnegative results if the specimen was not collected properly.Please review the "Fact Sheets" and FDA authorizedlabeling available for health care pr oviders andpatients using the following websites:[employer].com/home/Covid-19/HCP/gf-rafp-jzci-afwpn6JmflcNcjknquk [employer]com/home/Covid-19/Patients/dm-oche-ehnt-zvalu0Meml test has been authorized by the FDA under anEmergency Use Authorization (EUA) for use by authorizedlaboratories.Methodology: Nucleic Acid Amplification Test (NAAT)includes RT-PCR or TMA ID Date Data Source [id number] 12/10/2020 11:30:00 AM EDT [facility] Name Value Range Interpretation Code Description Data Kelsie rce(s) Supporting Document(s) SARS-COV-2 RNA RESP QL NEETU+PROBE Not detected [facility] This lab was ordered by [facility] Employee Cov id and reported by [employer]. ID Date Data Source [id number] 12/03/2020 08:00:00 PM EDT [facility] Name Value Range Interpretation Code Description Data Kelsie rce(s) Supporting Document(s) SARS coronavirus 2 RNA [Presence] in Res piratory specimen by NEETU with probe detection Not detected [facility] This lab [facility] by [facility] and re ported by [facility]. ID Date Data Source [id number] 12/03/2020 01:00:00 PM EDT [facility] Name Value Range Interpretation Code Description Data Kelsie rce(s) Supporting Document(s) SARS-COV-2 RNA RESP QL NEETU+PROBE Not detected [facility] This lab was ordered by [facility] Employee Cov id and reported by [facility]. ID Date Data Source [id number] 12/05/2020 06:14:00 AM EDT [facility] Name Value Range Interpretation Code Description Data Kelsie rce(s) Supporting Document(s) 53355-0 NOT DETECTED [facility] A Not Detected (negative) test result fo r this testmeans that SARS- CoV-2 RNA was not present in the specimenabove the limit of detection. A negative result does notrule out the possibility of COVID-19 and should not beused as the sole basis for treatment or patient managementdecisions. If COVID-19 is still suspected, based onexposure history together with other clinical findings,re- testing should be considered in consultation withpublic health authorities. Laboratory test results shouldalways be considered in the context of clinicalobservations and epidemiological data in making a finaldiagnosis and patient management decisions.Specimens that are self-collected were not tested withan internal control to confirm that the specimen wasproperly collected. As such, unobserved self-collectedspecimens from SARS-CoV-2 positive individuals may yieldnegative results if the specimen was not collected properly.Please review the "Fact Sheets" and FDA authorizedlabeling available for health care pr oviders andpatients using the following websites:[facility]fox.[facility]/home/Covid-19/HCP/ca-ches-uuhv-wzclm2VnewiCzqhxydp [employer]com/home/Covid-19/Patients/cj-uxjp-hymn-uxyqg6Xkzx test has been authorized by the FDA under anEmergency Use Authorization (EUA) for use by authorizedlaboratories.Methodology: Nucleic Acid Amplification Test (NAAT)includes RT-PCR or TMA ID Date Data Source [id number] 11/29/2020 09:13:00 PM EDT [facility] Name Value Range Interpretation Code Description Data Kelsie rce(s) Supporting Document(s) SARS coronavirus 2 RNA [Presence] in Res piratory specimen by NEETU with probe detection Not detected [facility] This lab was [facility] by [facility] and re ported by [facility]. ID Date Data Source [id number] 11/30/2020 06:37:00 AM EDT [facility] Name Value Range Interpretation Code Description Data Kelsie rce(s) Supporting Document(s) 96431-8 NOT DETECTED [facility] A Not Detected (negative) test result fo r this testmeans that SARS- CoV-2 RNA was not present in the specimenabove the limit of detection. A negative result does notrule out the possibility of COVID-19 and should not beused as the sole basis for treatment or patient managementdecisions. If COVID-19 is still suspected, based onexposure history together with other clinical findings,re- testing should be considered in consultation with[facility]. Laboratory test results shouldalways be considered in the context of clinicalobservations and epidemiological data in making a finaldiagnosis and patient management decisions.Specimens that are self-collected were not tested withan internal control to confirm that the specimen wasproperly collected. As such, unobserved self-collectedspecimens from SARS-CoV-2 positive individuals may yieldnegative results if the specimen was not collected properly.Please review the "Fact Sheets" and FDA authorizedlabeling available for health care pr oviders andpatients using the following websites:[facility]fox.[facility]/home/Covid-19/HCP/kd-ephd-oikj-jemdo1IuzcmKjelnwie [employer]com/home/Covid-19/Patients/bs-zirf-lcpe-vqifd9Qewz test has been authorized by the FDA under anEmergency Use Authorization (EUA) for use by authorizedlaboratories.Methodology: Nucleic Acid Amplification Test (NAAT)includes RT-PCR or TMA ID Date Data Source [id number] 11/29/2020 02:13:00 PM EDT [facility] Name Value Range Interpretation Code Description Data Kelsie rce(s) Supporting Document(s) SARS-COV-2 RNA RESP QL NEETU+PROBE Not detected [facility] This lab was ordered by [facility] Employee Cov id and reported by [facility]. ID Date Data Source [id number] 09/21/2020 12:00:00 AM EDT [facility] Name Value Range Interpretation Code Description Data Kelsie rce(s) Supporting Document(s) SARS-CoV2 Rapid Antigen Negative [facility] This lab was ordered by [facility] and reported by [facility]. ID Date Data Source [id number] 08/24/2020 03:21:00 PM EDT [facility] ([facility]) Name Value Range Interpretation Code Description Data Kelsie rce(s) Supporting Document(s) Group A Strep Culture Laboratory [facility] ([facility], [facility]) FULL REPORT IN LAB NOTES ([facility] and [facility]). NEGATIVE FOR STREP PYOGENES (GROUP A) ID Date Data Source [id number] 08/24/2020 12:00:00 AM EDT [facility] Name Value Range Interpretation Code Description Data Kelsie rce(s) Supporting Document(s) SARS-CoV2 Rapid Antigen Negative [facility] This lab was reported by [facility]. ID Date Data Source [id number] 02/15/2020 12:00:00 AM EST [facility] Name Value Range Interpretation Code Description Data Kelsie rce(s) Supporting Document(s) SARS coronavirus 2 Ag [facility] This lab was ordered by [facility] and reported by [facility]. ID Date Data Source [id number] 02/24/2020 12:00:00 AM EST [facility] Name Value Range Interpretation Code Description Data Kelsie rce(s) Supporting Document(s) SARS-CoV-2 (COVID-19) RNA [Presence] in Respiratory specimen by [facility] with probe detection Not Detected [facility] This lab was ordered by [facility] and reported by [employer]. ID Date Data Source [id number] 12/12/2019 11:19:27 AM [facility] Name Value Range Interpretation Code Description Data Kelsie rce(s) Supporting Document(s) Progress Note [facility] [id number] m [file] [id number]/infrastructure director+c [file] [id number] Procedure Social History Code Duration Value Status Description Data Source(s ) Smoking 02/15/2020 12:00:00 AM EST Patient is a former smoker completed Patient is a former smoker [facility] Alcohol intake 12/12/2019 12:00:00 AM EDT Ex-drinker (finding) comp leted Ex- drinker (finding) [facility] Tobacco use and exposure 12/12/2019 12:00:00 AM EDT Current user co mpleted Current user [facility] Smoking 12/12/2019 12:00:00 AM EDT Never smoker completed Never s [facility] Vital Signs ID Date Data Source UNK Name Value Range Interpretation Code Description Data Source(s) Systolic blood pressure 133 mm[Hg] 133 mm[Hg] [facility] Diastolic blood pressure 83 mm[Hg] 83 mm[Hg] [facility] Heart rate 109 /min 109 /min [facility]) Respiratory rate 15 /min 15 /min [facility] ( [facility]) Oxygen saturation in Arterial blood by Pulse oximetry 97 % 97 % [facility] ([facility]) Body temperature 98.0 [degF] 98.0 [degF] [facility] ([facility]) Body weight 195.00 [lb_av] 195.00 [lb_av] [facility] ([facility]) Body height 70 [in_i] 70 [in_i] [facility] ([facility]) 5'10" Body mass index (BMI) [Ratio] 28.0 kg/m2 28.0 k g/m2 [facility] ([facility]) Systolic blood pressure 132 mm[Hg] 132 mm[Hg] [facility] Diastolic blood pressure 91 mm[Hg] 91 mm[Hg] [facility] Heart rate 103 /min 103 /min [facility] ([facility]) Respiratory rate 12 /min 12 /min [facility] ( [facility], [facility]) Oxygen saturation in Arterial blood by Pulse oximetry 99 % 99 % [facility] ([facility], [facility]) Body temperature 98.2 [degF] 98.2 [degF] [facility] ([facility], [facility]) Body weight 195.00 [lb_av] 195.00 [lb_av] [facility] ([facility], [facility]) Body height 70 [in_i] 70 [in_i] [facility]) 5'10" Body mass index (BMI) [Ratio] 28.0 kg/m2 28.0 k g/m2 [facility] ([facility], [facility]) Body temperature 99.3 [degF] 99.3 [degF] [facility] ([facility], [facility]) Body height 70 [in_i] 70 [in_i] [facility] ([facility], [facility]) 5'10" Body mass index (BMI) [Ratio] 27.4 kg/m2 27.4 k g/m2 [facility] ([facility], [facility]) Oxygen saturation in Arterial blood by Pulse oximetry 97 % 97 % [facility] ([facility], [facility]) Systolic blood pressure 127 mm[Hg] 127 mm[Hg] [facility]) Diastolic blood pressure 83 mm[Hg] 83 mm[Hg] [facility] ([facility], [facility]) Heart rate 89 /min 89 /min [facility] ([facility], [facility]) Respiratory rate 16 /min 16 /min [facility] ( [facility], [facility]) Body weight 191.00 [lb_av] 191.00 [lb_av] [facility] ([facility], [facility]) Systolic blood pressure 117 mm[Hg] 117 mm[Hg] [facility]) Body temperature 97.9 [degF] 97.9 [degF] [facility] ([facility]) Diastolic blood pressure 74 mm[Hg] 74 mm[Hg] [facility] ([facility], [facility]) Body weight 200.00 [lb_av] 200.00 [lb_av] [facility] ([facility], [facility]) Body height 70 [in_i] 70 [in_i] [facility] ([facility]) 5'10" Body mass index (BMI) [Ratio] 28.7 kg/m2 28.7 k g/m2 [facility] ([facility]) Heart rate 70 /min 70 /min [facility] ([facility], [facility]) Respiratory rate 15 /min 15 /min [facility] ( [facility]) Oxygen saturation in Arterial blood by Pulse oximetry 99 % 99 % [facility] ([facility]) Systolic blood pressure 130 mm[Hg] 130 mm[Hg] [facility] ([facility]) Diastolic blood pressure 78 mm[Hg] 78 mm[Hg] [facility] ([facility]) Heart rate 103 /min 103 /min [facility] ([facility]) Body height 69.25 [in_i] 69.25 [in_i] [facility] ([facility]) 5'9.25" Body weight 214.00 [lb_av] 214.00 [lb_av] [facility] ([facility]) Oxygen saturation in Arterial blood by Pulse oximetry 100 % 100 % [facility] ([facility]) Body mass index (BMI) [Ratio] 31.4 kg/m2 31.4 k g/m2 [facility] ([facility]) ID Date Data Source [id number] 12/12/2019 11:19:34 AM [facility] Name Value Range Interpretation Code Description Data Source(s) WEIGHT RECORDED 205 lb 205 lb [facility] Body height Measured 70 in 70 in [facility] Patient Treatment Plan of Care Planned Activity Planned Date Details Description Data Source (s) meloxicam 15 MG Oral Tablet 12/05/2019 12:00:00 AM [facility]
--- OUTSIDE RECORDS SUMMARY | 2021-01-16 12:44 | CCD | Continuity of Care Document ---
Author Author Isidoro CEBALLOS PA Organization Unknown Address [address] [place] [id number] Phone [phone] Care Team Providers Care Agricultural Sales Representative Name Role Phone Marito Delarosa MD Unavailable Problems Active Problems Provider Date Low back pain Onset: Social History Type Date Description Comments Sex Unknown Tobacco Use Start: Unknown End: Unknown Patient is a former smoker Smoking Status Reviewed: 09/02/19 Patient is a former smoker Allergies and adverse reactions Description No Known Drug Allergies Medications Active Medications SIG Qnty Indications Ordering Provide r Date Gabapentin 600mg Tablets 1 by mouth three times a day 90tabs M47.817 Steve Bartholomew MD 11/12/2019 Meloxicam 15mg Tablets Take One Tablet By Mouth Daily With Food Or Milk 30tabs M47.817 Jovan López 10/07/2019 Cyclobenzaprine HCL 10mg Tablets Three Times A Day for Muscle Spasms 15tabs Unknown Buprenorphine HCL-Naloxone HCL 2-0.5mg Tablets Sub Unknown Escitalopram Oxalate 20mg Tablets Unknown Immunizations Description No Information Available Vital Signs Date Vital Result Comment 09/02/2019 3:17pm Body Temperature 96.8 F Height 70 inches 5'10" Weight 195.00 lb BMI (Body Mass Index) 28.0 kg/m2 08/30/2019 5:00pm Weight 198.44 lb BMI (Body Mass Index) 28.0 kg/m2 Results Description No Information Available Procedures Description No Information Available Medical Devices Description No Information Available Encounters Description No Information Available Assessments Description No Information Available Plan of Treatment 11/12/2019 - JORGE Le* M47.817 Spondylosis without myelopathy or radiculopathy, lumbosacral region* New Medication:* Gabapentin 600 mg - 1 by mouth three times a day * Follow up:* in 4 weeks with [facility] for back recheck * M51.37 Other intervertebral disc degeneration, lumbosacral region * M51.27 Other intervertebral disc displacement, lumbosacral region * M48.061 Spinal stenosis, lumbar region without neurogenic claudication * 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
--- NOTE | 2021-01-16 14:14 | REP ---
INDICATION: covid post, cough, chest tightness. COMPARISON: PA chest, 05/21/2015. TECHNIQUE: Upright PA and lateral chest images were obtained. FINDINGS: The lungs are clear. The heart borders, mediastinum and pulmonary vascular pattern normal. The upper abdominal bowel gas pattern is normal. There are no bony abnormalities of the chest. IMPRESSION: No evidence of acute cardiopulmonary pathology. <Electronically signed by Iain Rahman > 01/16/21 [id number]
== END 2021-01-16 14:31 | disposition home or self-care (01) ==
LOC: M ED 11:54
DX: R05.9 Cough, unspecified (principal); U07.1 COVID-19; Z79.899 Other long term (current) drug therapy

== ENCOUNTER → 2022-03-03 | Outpatient (CLI) | payer BC, OTHER | LOC: M RAD 17:56 | PROVIDERS: ATTEND Physician Assistant | DX: R07.82 Intercostal pain (principal) ==

== ENCOUNTER → 2022-04-21 | Outpatient (CLI) | payer BC, OTHER | LOC: M PLARAD 14:46 | PROVIDERS: ATTEND Physical Medicine & Rehabilitation | DX: M51.36 Other intervertebral disc degeneration, lumbar region (principal) ==

== ENCOUNTER → 2022-07-31 | Outpatient (CLI) | payer BC, OTHER ==
[2022-07-31 17:16] LABS: PLATELET COUNT, AUTOMATED 249 10^3/uL (150-450)
[2022-07-31 17:28] LABS: INR 0.94; PROTHROMBIN TIME 12.8 SECONDS (12.5-14.5)
[2022-07-31 17:29] LABS: PARTIAL THROMBOPLASTIN TIME 30.8 SECONDS (24.8-34.2)
== END ==
LOC: M LAB 15:38
PROVIDERS: ATTEND Physician Assistant
DX: Z01.818 Encounter for other preprocedural examination (principal)

== ENCOUNTER → 2022-12-22 | Outpatient (CLI) | payer BC, OTHER | LOC: M PLARAD 07:40 | PROVIDERS: ATTEND Physician Assistant | DX: M51.26 Other intervertebral disc displacement, lumbar region (principal) ==

== ENCOUNTER → 2023-03-16 | Outpatient (CLI) | payer BC, OTHER ==
[2023-03-16 12:45] LABS: PLATELET COUNT, AUTOMATED 238 10^3/uL (150-450)
[2023-03-16 13:01] LABS: INR 0.92; PROTHROMBIN TIME 12.1 SECONDS (12.5-14.5)
[2023-03-16 13:02] LABS: PARTIAL THROMBOPLASTIN TIME 30.2 SECONDS (24.8-34.2)
== END ==
LOC: M LAB 12:22
PROVIDERS: ATTEND Orthopaedic Surgery
DX: Z01.818 Encounter for other preprocedural examination (principal)

== ENCOUNTER 2023-04-23 16:20 | Emergency (ER) | payer BC, OTHER ==
[~2023-04-23] VITALS: Ht 177.8 cm; Wt 81.6 kg
[2023-04-23] MEDS ORDERED: TIZA10TA (16:28)
[2023-04-23] MEDS ORDERED: LISD60CA (16:28)
[2023-04-23] MEDS ORDERED: PREG75CA3 (16:28)
[2023-04-23] MEDS ORDERED: CLAR10CA3 PO (20:57)
[2023-04-23] MEDS ORDERED: FLON1SPR NARES (20:57)
[2023-04-23 21:10] VITALS: BP 121/79; TEMP 97.9; O2SAT 99
== END 2023-04-23 21:14 | disposition home or self-care (01) ==
LOC: M ED 16:20
DX: H65.92 Unspecified nonsuppurative otitis media, left ear (principal); M54.50 Low back pain, unspecified; Z87.891 Personal history of nicotine dependence; Z79.899 Other long term (current) drug therapy; Z79.891 Long term (current) use of opiate analgesic; Z79.1 Long term (current) use of non-steroidal anti-inflammatories (NSAID)

== ENCOUNTER → 2023-05-28 | Outpatient (CLI) | payer BC ==
[~2023-05-28] MED LIST changes: +CLAR10CA3 PO; +FLON1SPR NARES; +LISD60CA; +PREG75CA3; +PROHANCE 279.3MG/ML 15ML VIAL As Ordered ONE; +TIZA10TA
== END ==
LOC: M RAD 12:38
PROVIDERS: ATTEND Physician Assistant
DX: M54.17 Radiculopathy, lumbosacral region (principal)

== ENCOUNTER → 2023-12-31 | Outpatient (REF) | payer BC ==
[~2023-12-31] MED LIST changes: -PROHANCE 279.3MG/ML 15ML VIAL As Ordered ONE
== END ==
LOC: M LAB REF 21:20
PROVIDERS: ATTEND Physician Assistant Medical
DX: B34.9 Viral infection, unspecified (principal)

== ENCOUNTER 2024-01-13 15:10 | Emergency (ER) | payer BC ==
[~2024-01-13] VITALS: Ht 177.8 cm; Wt 85.0 kg
[2024-01-13] MEDS ORDERED: PHEN-815 PO (15:24)
[2024-01-13] MEDS ORDERED: ISOVUE-370 76% 100ML VIAL As Ordered ONE (17:18)
[2024-01-13 17:24] LABS: BASO # 0.1 10^3/uL (0.0-0.2); BASO % 0.6 % (0.0-1.0); EOS # 0.1 10^3/uL (0.0-0.5); EOS % 1.1 % (0.0-3.0); HEMATOCRIT 41.9 % (42.0-52.0); HEMOGLOBIN 14.4 g/dl (13.5-17.5); LYMPH # 2.1 10^3/uL (1.5-5.0); LYMPH % 23.3 % (24.0-44.0); MEAN CORPUSCULAR HEMOGLOBIN 30.3 pg (27.0-33.0); MEAN CORPUSCULAR HGB CONC 34.4 g/dl (32.0-36.5); MONO # 0.7 10^3/uL (0.0-0.8); MONO % 7.3 % (2.0-8.0); NEUTROPHILS # 6.1 10^3/uL (1.5-8.5); NEUTROPHILS % 67.5 % (36.0-66.0); PLATELET COUNT, AUTOMATED 248 10^3/uL (150-450); RED BLOOD COUNT 4.76 10^6/uL (4.30-6.10)
[2024-01-13] MEDS ORDERED: BENZ200C70 PO (18:28)
[2024-01-13] MEDS ORDERED: MUCI1TAB16 PO (18:28)
[2024-01-13 18:36] VITALS: BP 119/75; TEMP 97.4; O2SAT 98
[2024-01-13] MEDS: BENZONATATE 100MG CAPSULE PO ONE (18:37)
== END 2024-01-13 18:38 | disposition home or self-care (01) ==
LOC: M ED 15:10
DX: J02.9 Acute pharyngitis, unspecified (principal); R05.9 Cough, unspecified; Z79.899 Other long term (current) drug therapy
CPT/HCPCS: 36415; 71046; 71260; 80047; 85025; 87486; 87581; 87633; 87798; 87880; 99284; Q9967

== ENCOUNTER → 2024-01-29 | Outpatient (CLI) | payer BC ==
[~2024-01-29] MED LIST changes: +BENZ200C70 PO; +ISOVUE-370 76% 100ML VIAL As Ordered ONE; +MUCI1TAB16 PO; +PHEN-815 PO
== END ==
LOC: M RAD 15:28
PROVIDERS: ATTEND Nurse Practitioner Adult Health
DX: R91.8 Other nonspecific abnormal finding of lung field (principal)